=== PATIENT | female | born 1995 | race Caucasian/White ===

== ENCOUNTER 2016-10-29 12:10 | Emergency (ER) | payer BC, OTHER ==
[2016-10-29] MEDS ORDERED: HYDROmorphone 1 MG/ML Syringe ONE (12:18)
[2016-10-29] MEDS ORDERED: HYDROmorphone 1 MG/ML Syringe IVPUSH ONE ×4 (12:26→14:53)
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
[2016-10-29 12:54] LABS: CHLORIDE,CL 101 mmol/L (98-115); SODIUM,NA 139 mmol/L (136-145)
[2016-10-29 12:57] VITALS: BP 132/67
[2016-10-29] MEDS ORDERED: Iopamidol 612 MG/ML 100 ML Bottle IVPUSH ONE (13:51)
[2016-10-29] MEDS ORDERED: Sodium Chloride 0.9% 50 ML SDV FLUSH SCH (14:00)
[2016-10-29] MEDS ORDERED: Morphine 4 MG/ML Syringe IVPUSH ONE (14:04)
[2016-10-29] MEDS ORDERED: Morphine 4 MG/ML Syringe ONE (14:06)
[2016-10-29] MEDS ORDERED: METHYLPREDNISOLONE SOD SUCC IV ONE ×3 (15:00→15:30)
[2016-10-29] MEDS ORDERED: SODIUM CHLORIDE 0.9% IV ONE ×2 (15:00→15:15)
[2016-10-29] MEDS ORDERED: [UNRECOGNIZED DRUG - OTHER] IV ONE (15:30)
[2016-10-30] MEDS ORDERED: methylPREDNISolone Sodium Succinate 125 MG/2 ML SDV IV ONE (16:27)
== END 2016-10-29 15:29 ==
LOC: KA.ED 12:10
DX: S32.011A Stable burst fracture of first lumbar vertebra, initial encounter for closed fracture (principal); V29.3XXA Motorcycle rider (driver) (passenger) injured in unspecified nontraffic accident, initial encounter; Y93.55 Activity, bike riding
CPT/HCPCS: 71260; 72125; 80048; 84703; 85025; 96374; 96375; 96376; 99285; J1170; J2270; J2930; J7050; Q9967; 74177